=== PATIENT | female | born 1940 | race Caucasian/White ===

== ENCOUNTER → 2019-01-31 15:53 | Outpatient (CLI) | payer MEDICARE, BC ==
[~2019-01-31 15:53] MED LIST: CELEXA20 MG PO; COLACE100 MG PO; COUMADIN5 MG PO; DILTIAZEM 24HR240 M4 PO; HYDROCODON-ACE1 EAC7 PO; ISOSORBIDE MONO30 M1 PO; KEFLEX500 MG PO; LEVOXYL25 MCG PO; LIPITOR10 MG PO; LOVENOX40 MG/0.4 SC; MIRALAX17 GM PO; SINEMET 25-1001 EAC1 PO
[2019-02-22 18:37] VITALS: BMI 32.8
== END | disposition home or self-care (01) ==
LOC: D.LABREF 15:53
PROVIDERS: ATTEND Orthopaedic Surgery
DX: M17.11 Unilateral primary osteoarthritis, right knee (principal)

== ENCOUNTER 2019-02-02 13:49 | Inpatient (IN) | payer MEDICARE, BC ==
[~2019-02-02] VITALS: Ht 157.5 cm; Wt 81.4 kg
[2019-02-15] MEDS ORDERED: LIPITOR10 MG PO (15:15)
[2019-02-15] MEDS ORDERED: CELEXA20 MG PO (15:16)
[2019-02-15] MEDS ORDERED: DILTIAZEM 24HR240 M4 PO (15:17)
[2019-02-15] MEDS ORDERED: LEVOXYL25 MCG PO (15:17)
[2019-02-15] MEDS ORDERED: ISOSORBIDE MONO30 M1 PO (15:17)
[2019-02-15] MEDS ORDERED: COUMADIN5 MG PO (15:23)
[2019-02-15] MEDS ORDERED: SINEMET 25-1001 EAC1 PO ×2 (15:30→15:31)
[2019-02-16 09:16] LABS: BASOPHILS 1.5 % (0-2); EOSINOPHILS 3.1 % (0-7); HEMATOCRIT 40.3 % (36.0-48.0); HEMOGLOBIN 12.8 g/dL (12-16); IMMATURE GRANULOCYTES 0.3 % (0-5); LYMPHOCYTES 26.8 % (15-50); MCH 31.8 pg (26.0-34.0); MCHC 31.8 g/dL (31.0-37.0); MEAN PLATELET VOLUME 9.8 fL (7.4-10.4); MONOCYTES 10.9 % (2-11); NEUTROPHILS 57.4 % (40-80); PLATELET COUNT 222 10x3/uL (130-400); RBC 4.03 10x6/uL (4.00-5.40); RDW 13.2 % (11.5-14.5); WBC 6.5 10x3/uL (4.8-10.8)
[2019-02-16 09:23] LABS: ANION GAP 10.8 mmol/L (8-16); APPEARANCE CLEAR (CLEAR); BACTERIA MODERATE /hpf (NEGATIVE); BILIRUBIN NEGATIVE (NEGATIVE); CALCIUM 9.5 mg/dL (8.5-10.1); CARBON DIOXIDE 31.5 mmol/L (21.0-32.0); COLOR YELLOW (YELLOW); CREATININE - SERUM 0.9 mg/dL (0.6-1.3); EPITHELIAL CELLS 0-5 /hpf (0-5); GLUCOSE NEGATIVE (NEGATIVE); KETONE NEGATIVE (NEGATIVE); NITRITE NEGATIVE (NEGATIVE); POTASSIUM - SERUM 5.3 mmol/L (3.5-5.1); PROTEIN TRACE mg/dL (NEGATIVE); SPECIFIC GRAVITY 1.015 (1.005-1.020); UROBILINOGEN NORMAL (NORMAL); WHITE CELLS - URINE 25-50 /hpf (NEGATIVE)
[2019-02-16 09:24] LABS: AMORPHOUS SEDIMENT <1+ /lpf (NONE SEEN); MUCUS <1+ /lpf (NONE SEEN)
[2019-02-16 09:31] LABS: APTT 45.4 SECONDS (22.8-39.4); INR 3.06 (0.85-1.17); PROTIME 30.8 SECONDS (11.6-15.0)
[2019-02-16] MEDS ORDERED: COLACE100 MG PO (10:54)
[2019-02-16] MEDS ORDERED: MIRALAX17 GM PO (10:54)
[2019-02-22 12:51] VITALS: BP 148/67; BMI 33.0
[2019-02-22 13:04] LABS: APTT 26.1 SECONDS (22.8-39.4); INR 1.18 (0.85-1.17); PROTIME 14.5 SECONDS (11.6-15.0)
--- NOTE | 2019-02-22 17:16 | NUR ---
MEETS ANESTHESIA DISCHARGE CRITHERIA
[2019-02-22 17:26] VITALS: BP 141/67
[2019-02-22 18:18] LABS: INR 1.24 (0.85-1.17)
[2019-02-22 18:37] VITALS: BP 141/67; Ht 157.5 cm; Wt 81.4 kg
[2019-02-22 19:00] VITALS: BP 109/49
--- NOTE | 2019-02-22 19:25 | NUR ---
PT LYING IN BED RESTING WITHOUT DISTRESS, FAMILY AT BEDSIDE. CPM ON. RIGHT KNEE DRESSING CDI. IV LEFT AC INFUSING 1/2NS @ 50. DENIES NEEDS. CL IN REACH, WILL CTM
--- NOTE | 2019-02-22 21:30 | NUR ---
PT LYING IN BED SLEEPING, NO SIGNS OF DISTRESS. REMOVED CPM. ZAINA PLACED UNDER PT AND TURNED ON. PT CONTINUES TO SLEEP. ATTEMPTING TO WAKE PT UP. SHE WILL OPEN EYES AND SMILE AND FOLLOW SOME COMMANDS BUT IMMEDIATELY FALLS BACK ASLEEP. ABLE TO GET PT TO TAKE SIP OF WATER BUT WOULD NOT FOLLOW COMMANDS ENOUGH TO TAKE PILLS. WILL ATTEMPT AGAIN. WILL CTM
--- NOTE | 2019-02-22 23:00 | NUR ---
PT LYING IN BED ASLEEP, ABLE TO WAKE PT UP BRIEFLY. SHE SMILES AND NODS BUT DOES N0T FOLLOW COMMANDS TO SWALLOW WATER OR PILLS. HS MEDS NOT GIVEN AT THIS TIME D/T PT NOT BEING FULLY AWAKE. WILL CTM
[2019-02-23] VITALS: BP 97/53
[2019-02-23 04:00] VITALS: BP 119/59
--- NOTE | 2019-02-23 05:00 | NUR ---
PT SITTING UP IN BED, NO DISTRESS. AT BEDSIDE. STATES PAIN 6/10 IN KNEE. PROVIDED PT WITH WATER, NORCO GIVEN FOR PAIN. WILL CTM
--- NOTE | 2019-02-23 05:50 | NUR ---
PT HAS NOT VOIDED SINCE SURGERY. PT DOES NOT FEEL LIKE SHE NEEDS TO VOID AND BLADDER IS NOT DISTENDED. ENCOURAGED PT TO DRINK WATER NOW THAT SHE IS AWAKE. AFTER ONE HOUR AND TWO CUPS OF WATER PT STILL HAD NO URGE TO VOID. BLADDER SCANNED PT WITH RESULT OF 0ML. PT DOES NOT WANT IN AND OUT DONE AT THIS TIME, WANTS TO CONTINUE TO TRY AND DRINK WATER. TWO CUPS OF WATER PROVIDED TO PT. WILL CTM
[2019-02-23 06:16] LABS: HEMOGLOBIN 10.4 g/dL (12-16); MCH 31.7 pg (26.0-34.0); MCHC 31.5 g/dL (31.0-37.0); MCV 100.6 fL (80.0-100.0); MEAN PLATELET VOLUME 10.3 fL (7.4-10.4); RBC 3.28 10x6/uL (4.00-5.40); RDW 13.3 % (11.5-14.5); WBC 9.3 10x3/uL (4.8-10.8)
--- NOTE | 2019-02-23 07:18 | OP ---
PATIENT NAME: GODWIN AMEZQUITA MEDICAL RECORD: [id number] :38 LOCATION:[facility].2218 ADMISSION DATE:02/22/19 SURGEON: SUZIE GLASS DO DATE OF OPERATION: 02/22/2019 PROCEDURES PERFORMED: Right total knee arthroplasty and left knee injection. PREOPERATIVE DIAGNOSIS: Right knee and left knee osteoarthritis. POSTOPERATIVE DIAGNOSIS: Right knee and left knee osteoarthritis. INDICATIONS: Ms. Linder is a 78-year-old female who has tried all manners of nonoperative treatments for her knee arthritis. She is afraid to get injections, so I told her I would inject the left knee when we are doing the right knee. She is aware of the risks of the total knee including infection, bleeding, damage to nerves and vessels, fracture, implant failure, need for further surgery, revision surgery, blood clots, and even . She was okay with that and signed the consent. SURGEON: Suzie Glass DO DESCRIPTION OF PROCEDURE: The patient received the block per anesthesia in the preoperative area and taken to the operative suite and laid in the supine position, general anesthetic and LMA was placed. She was given 2 grams Ancef and 80 mg of gentamicin preoperatively. The right lower extremity was then prepped and draped in sterile fashion. A timeout was performed and everyone was in agreement with the correct side, site, patient and procedure. Incision was marked out anteriorly on the knee and covered in Ioban. The #10 blade scalpel was then used to go through the skin down to the capsule and then a fresh #10 blade was used in the medial parapatellar approach. The fat pad was removed and the patella was milled down to the prosthesis. The femoral canal was then entered and distal femur was then cut, the proximal tibia was then cut as well and the femur was measured to be 62.5 and then, 4-in-1 cutting block was used and cut the femur and the chamfer cuts. These bone fragments were removed and then the patella was floated and ranged. Rotation was marked. The patella was then drilled as well as the lug holes for the femur and then the tibia was prepped and cement was mixed and it was put on the implant in the tibia, after they have been irrigated prior to this and then the femur was put on and #10 poly brought in between and brought to extension and the excess cement was removed after the tibia was impacted and then the femur was put on, the cement was then put on the patella and the screws were held in place and excess cement was removed. Knee was then irrigated with a liter of normal saline and a liter of Bactisure and then another liter of saline. I then trialled and the #10 poly was being spit out, decided downsize the femur, once we downsized to 60 it solved the problem and a 12 E-poly with anterior stabilized bearing was put in and locked into place. This ranged very well, with very stable medial and lateral stability and flexion and extension. This was then irrigated again and tobramcyin and vancomycin powders as well as Surgicel powder was put. The knee capsule was closed with #2 Ethibond in a morgvv-vs-imzmc fashion and then the skin was closed with 2-0 Vicryl in an inverted interrupted fashions and Zipline was placed on the knee. Adaptic, 4 x 4s, ABD, Webril, Sha wrap was then placed on the knee. Then, the left knee was prepped with alcohol and Betadine and suprapatellar OPERATIVE REPORT [id number] GODWIN AMEZQUITA approach was used to insert through the lateral aspect, Depo-Medrol and 4 mL of lidocaine 1% without epinephrine and 80 of Depo. A Band-Aid was placed over that. She was then awakened and taken to the recovery in stable condition. BLOOD LOSS: 300 mL. COMPLICATIONS: None. TRANSINT:[id number] Voice Confirmation ID: [id number] DOCUMENT ID: [id number] SUZIE GLASS DO at 0718 CC: [id number] DICTATION DATE: 02/22/19 1638 DONATIONS ATTENDANT: 02/22/19 2358 ADM IN [facility] [address] [place] [address]
--- NOTE | 2019-02-23 07:54 | NUR ---
ALERT AND ORIENTED. LUNGS CLEAR BILATERALLY. HEART SOUNDS S1 AND S2 HEARD IN ALL ENRIQUE. BOWEL SOUNDS ACTIVE X 4. SKIN INTACT WITHOUT REDNESS. IV TO LEFT AC PATENT WITHOUT REDNESS. DRSG TO RIGHT KNEE C/D/I. ON CPM MACHINE. HAS NOT URINATED SINCE SURGERY BUT DID NOT WAKE UP UNTIL 0445 THIS AM. DRINKING FLUIDS NOW. NO URINE NOTED TO BLADDER ON BLADDER SCAN AT 0545 THIS AM. WILL BLADDER SCAN AGAIN IF NO OUTPUT. DENIES PAIN. DENIES NEEDS. BED LOW. FALL PRECAUTIONS IN PLACE. CALL BOBBY AND PERSONAL ITEMS IN REACH. WILL CONTINUE TO MONITOR.
[2019-02-23 08:30] VITALS: BP 114/69
--- NOTE | 2019-02-23 10:16 | NUR ---
BED CHANGED. PATIENT UP IN CHAIR AT BEDSIDE.
--- NOTE | 2019-02-23 11:24 | NUR ---
ASSISTED TO TOILET. PATIENT VOIDED LARGE AMOUNT IN TOILET. DR GLASS NOTIFIED.
--- NOTE | 2019-02-23 11:38 | NUR ---
DRSG CHANGED TO RIGHT KNEE FOR DISCHARGE. DISCHARGING TODAY PER DR GLASS.
[2019-02-23] MEDS ORDERED: LOVENOX40 MG/0.4 SC (11:59)
[2019-02-23] MEDS ORDERED: HYDROCODON-ACE1 EAC7 PO (12:00)
[2019-02-23] MEDS ORDERED: KEFLEX500 MG PO (12:00)
--- NOTE | 2019-02-23 12:29 | NUR ---
SITTING IN CHAIR AT BEDSIDE. DENIES NEEDS. WILL CONTINUE TO MONITOR.
--- NOTE | 2019-02-23 13:32 | NUR ---
IV REMOVED FROM LEFT AC WITH TIP INTACT FOR DISCHARGE.
--- NOTE | 2019-02-23 16:11 | MORECARE ---
CASE MANAGEMENT DISCHARGE SUMMARY PATIENT: GODWIN AMEZQUITA UNIT: [id number] ADM DATE: 02/22/19 AGE: 78 : 39 SEX: F ROOM/BED: D.2218 AUTHOR: BARRERA CRUZ PHYSICIAN: REFERRING PHYSICIAN: SUZIE GLASS DO DATE OF SERVICE: 02/23/19 Discharge Plan Patient Name: GODWIN AMEZQUITA Facility: [facility]:[place] : 1940 Planned Disposition: Home or Self Care Anticipated Discharge Date: Discharge Date: Expected LOS: Initial Reviewer: [email or web address] Initial Review Date: 02/22/2019 Generated: 02/23/19 5:10 pm Patient Name: GODWIN AMEZQUITA Page [id number] at 1611 All edits/amendments must be made on the electronic document DICTATION DATE: 02/23/19 161 WOOD TURNING LATHE OPERATOR: ESTRELLA 02/23/19 161 RPT#: [id number] DC DATE: STATUS: ADM IN [facility] [address] [place] [address] END OF REPORT
--- NOTE | 2019-02-23 16:20 | MORECARE ---
CASE MANAGEMENT DISCHARGE SUMMARY PATIENT: GODWIN AMEZQUITA UNIT: [id number] ADM DATE: 02/22/19 AGE: 78 : 39 SEX: F ROOM/BED: D.5125 AUTHOR: BARRERA CRUZ PHYSICIAN: REFERRING PHYSICIAN: SUZIE GLASS DO DATE OF SERVICE: 02/23/19 Discharge Plan Patient Name: GODWIN AMEZQUITA Facility: [facility]:[place] : 1940 Planned Disposition: Home or Self Care Anticipated Discharge Date: Discharge Date: Expected LOS: Initial Reviewer: [email or web address] Initial Review Date: 02/22/2019 Generated: 02/23/19 5:19 pm Comments DCP- Discharge Planning Updated by [email or web address]: Shantell Fernández on 02/23/19 3:[address] Patient Name: GODWIN AMEZQUITA Admission Status: Elective Accout number: [id number] Admission Date: 02-22-2019 : 1940 Admission Diagnosis: Attending: SUZIE GLASS Current LOS: 1 Anticipated DC Date: Planned Disposition: Home or Self Care Primary Insurance: MEDICARE A & B Discharge Planning Comments: CM met with patient to complete initial dc planning assessment. CM educated patient on the CM role and verbal consent given by patient to complete assessment. Patient lives at home with her and her adult children will be staying with her at home. At discharge patient plans to return home and feels this is a safe discharge. She would like to do her OP PT at [facility]. I have spoken with Renetta and set her appointment up for tomorrow 02/24/19 @ 12:30. I faxed an order to [phone]. CM discussed availability medical equipment, she stated that she has a walker, CPM, BSC, ice machine that was delivered to her home by [employer]. Patient denied known discharge needs at this time. CM will continue to follow and will assist as needed with dc plans/needs. Slab Installer: Shantell Fernández DCPIA - Discharge Planning Initial Assessment Updated by [email or web address]: Shantell Fernández on 02/23/19 4:12 pm * Is the patient Alert and Oriented? Yes * How many steps to enter\exit or inside your home? DON'T USE * PCP CRISTIAN * [facility]acy [facility] [place] * Preadmission Environment Home with Family * ADLs Independent * Equipment Grab Bars Rolling Walker Walker * Other Equipment CPM ICE MACHINE * List name and contact numbers for known caregivers / representatives who currently or will assist patient after discharge: CHEIKH [phone] * Verbal permission to speak to the caregivers and representatives has been obtained from the patient. N/A * Community resources currently utilized Other * Additional services required to return to the preadmission environment? Yes * Can the patient safely return to the preadmission environment? Yes * Has this patient been hospitalized within the prior 30 days at any hospital? No Last DP export: 02/23/19 3:11 Patient Name: GODWIN AMEZQUITA Page [id number] at 1620 All edits/amendments must be made on the electronic document DICTATION DATE: 02/23/191618 COMIC WRITER: ESTRELLA 02/23/191618 RPT#: [id number] DC DATE: STATUS: ADM IN [facility] [address] [place] [address] END OF REPORT
--- NOTE | 2019-02-23 17:10 | NUR ---
DISCHARGE EDUCATION PROVIDED BOTH WRITTEN AND VERBAL. VERBALIZED UNDERSTANDING. DENIES FURTHER QUESTIONS. IV PREVIOUSLY REMOVED WITH TIP INTACT AND DRSG PREVIOUSLY CHANGED TO RIGHT KNEE. EXTRA DRSGS SENT WITH PATIENT. VERBALIZED UNDERSTANDING ON DRSG CHANGES. DENIES FURTHER NEEDS. PATIENT DISCHARGED HOME WITH SON WITH ALL BELONGINGS.
--- NOTE | 2019-02-25 16:14 | MORECARE ---
CASE MANAGEMENT DISCHARGE SUMMARY PATIENT: GODWIN AMEZQUITA UNIT: [id number] ADM DATE: 02/22/19 AGE: 78 : 39 SEX: F ROOM/BED: D.0111 AUTHOR: BARRERA CRUZ PHYSICIAN: REFERRING PHYSICIAN: SUZIE GLASS DO DATE OF SERVICE: 02/25/19 Discharge Plan Patient Name: GODWIN AMEZQUITA Facility: [facility]:[place] : 1940 Planned Disposition: Home or Self Care Anticipated Discharge Date: Discharge Date: 02/23/2019 Expected LOS: Initial Reviewer: [email or web address] Initial Review Date: 02/22/2019 Generated: 02/25/19 5:14 pm DCP- Discharge Planning Updated by [email or web address]: Shantell Fernández on 02/23/19 3:[address] Patient Name: GODWIN AMEZQUITA Admission Status: Elective Accout number: [id number] Admission Date: 02-22-2019 : 1940 Admission Diagnosis: Attending: SUZIE GLASS Current LOS: 1 Anticipated DC Date: Planned Disposition: Home or Self Care Primary Insurance: MEDICARE A & B Discharge Planning Comments: CM met with patient to complete initial dc planning assessment. CM educated patient on the CM role and verbal consent given by patient to complete assessment. Patient lives at home with her and her adult children will be staying with her at home. At discharge patient plans to return home and feels this is a safe discharge. She would like to do her OP PT at [facility]. I have spoken with Renetta and set her appointment up for tomorrow 02/24/19 @ 12:30. I faxed an order to [phone]. CM discussed availability medical equipment, she stated that she has a walker, CPM, BSC, ice machine that was delivered to her home by [employer]. Patient denied known discharge needs at this time. CM will continue to follow and will assist as needed with dc plans/needs. Telehealth Director: Shantell Fernández DCPIA - Discharge Planning Initial Assessment Updated by [email or web address]: Shantell Fernández on 02/23/19 4:12 pm * Is the patient Alert and Oriented? Yes * How many steps to enter\exit or inside your home? DON'T USE * PCP CRISTIAN * [facility]acy [facility] [place] * Preadmission Environment Home with Family * ADLs Independent * Equipment Grab Bars Rolling Walker Walker * Other Equipment CPM ICE MACHINE * List name and contact numbers for known caregivers / representatives who currently or will assist patient after discharge: CHEIKH [phone] * Verbal permission to speak to the caregivers and representatives has been obtained from the patient. N/A * Community resources currently utilized Other * Additional services required to return to the preadmission environment? Yes * Can the patient safely return to the preadmission environment? Yes * Has this patient been hospitalized within the prior 30 days at any hospital? No Last DP export: 02/23/19 3:20 Patient Name: GODWIN AMEZQUITA Page [phone] at 1614 All edits/amendments must be made on the electronic document DICTATION DATE: 02/25/191613 ORTHOPHOTOGRAPHY TECHNICIAN: ESTRELLA 02/25/191613 RPT#: [id number] DC DATE:02/23/19 STATUS: DIS IN [facility] [address] [place] [address] END OF REPORT
== END 2019-02-23 17:11 | disposition home or self-care (01) | DRG 470 ==
LOC: D.SDCHOLD 02-16 10:00 → D.MS 02-22 11:50 → D.SDCHOLD 02-22 12:30 → D.MS 02-22 17:15
PROVIDERS: ADMIT Orthopaedic Surgery; ATTEND Orthopaedic Surgery
PROC: 3E0U3BZ Introduction of Anesthetic Agent into Joints, Percutaneous Approach (ICD-10-PCS; 2019-02-22)
PROC: 0SRC0J9 Replacement of Right Knee Joint with Synthetic Substitute, Cemented, Open Approach (ICD-10-PCS; principal; 2019-02-22 14:15)
PROC: 3E0U33Z Introduction of Anti-inflammatory into Joints, Percutaneous Approach (ICD-10-PCS; 2019-02-22 14:15)
DX: M17.0 Bilateral primary osteoarthritis of knee (principal); G20 Parkinson's disease; K21.9 Gastro-esophageal reflux disease without esophagitis; E03.9 Hypothyroidism, unspecified

== ENCOUNTER → 2019-06-02 12:23 | Outpatient (CLI) | payer MEDICARE, BC ==
[2019-02-22 18:37] VITALS: BMI 32.8
== END | disposition home or self-care (01) ==
LOC: D.US 12:23
PROVIDERS: ATTEND Orthopaedic Surgery
DX: I82.401 Acute embolism and thrombosis of unspecified deep veins of right lower extremity (principal)